=== PATIENT | female | born 1990 | race American Indian/Alaskan Native ===

== ENCOUNTER 2018-04-13 17:45 | Emergency (ER) | payer SELFPAY ==
[2018-04-13 18:04] VITALS: BP 117/78
[2018-04-13 18:53] LABS: HCG Qualitative,Urine Negative (Negative)
[2018-04-13 20:22] LABS: Bacteria,Urine 1+ /HPF (Negative); Bilirubin,Urine NEG (Negative); Blood,Urine SM (Negative); Color,Urine Colorless (Yellow); Protein,Urine <15 mg/dL mg/dL (Negative); Urobilinogen,Urine < 2.0 mg/dL (<2.0)
--- NOTE | 2018-04-13 20:46 | Emergency Department Report ---
ED Female HPI - General Chief complaint: Urogenital-Male Stated complaint: VAGINAL PAIN Time Seen by Provider: 04/13/18 20:04 Source: patient Mode of arrival: Ambulatory Limitations: No Limitations - History of Present Illness Initial comments: 27-year-old -[place] Citizen female presents to the emergency room for external vaginal irritation with vaginal discharge and painful urination 3 days. Patient reports that she does have some odor with the vaginal discharge. She admits to unprotected intercourse with one partner that she's had for the last 2 years. She is currently on Depakote last menstrual period was 03/29/2018. She is 3 para 0 no past medical history currently takes no medications and has no known drug allergies. MD Complaint: vaginal discharge -: days(s) (3) Location: labia Severity scale (0 -10): 5 Quality: burning Consistency: intermittent Improves with: none Worsens with: urination Are you Now?: No Last Menstrual Period: 03/29/18 EDC: 01/03/19 Associated Symptoms: vaginal discharge - Related Data Sexually active: Yes : 3 A: 3 Home Medications Medication Instructions Recorded Confirmed Last Taken medroxyPROGESTERone ACETATE 150 mg IM Q3M 09/11/14 09/11/14 08/18/14 [Depo-Provera (Contraception)] Previous Rx's Medication Instructions Recorded Last Taken Type Ciprofloxacin HCl [Cipro] 250 mg PO BID #14 tablet 09/11/14 Unknown Rx Allergies Allergy/AdvReac Type Severity Reaction Status Date / Time No Known Allergies Allergy Unverified 09/11/14 12:56 ED Review of Systems ROS: Stated complaint: VAGINAL PAIN Other details as noted in HPI Comment: All other systems reviewed and negative Genitourinary: discharge, other (labia irritation) ED Past Medical Hx - Past Medical History Hx Asthma: Yes (ATHLETIC ASTHMA) - Surgical History Additional Surgical History: x 1 - Social History Smoking Status: Never Smoker Substance Use Type: None - Medications Home Medications: Home Medications Medication Instructions Recorded Confirmed Last Taken Type Ciprofloxacin HCl [Cipro] 250 mg PO BID #14 tablet 09/11/14 Unknown Rx medroxyPROGESTERone ACETATE 150 mg IM Q3M 09/11/14 09/11/14 08/18/14 History [Depo-Provera (Contraception)] ED Physical Exam - General Limitations: No Limitations General appearance: alert, in no apparent distress - Eye Eye exam: Present: EOMI - ENT ENT exam: Present: mucous membranes moist - Cardiovascular Cardiovascular Exam: Present: regular rate, normal rhythm. Absent: systolic murmur, diastolic murmur, rubs, gallop - GI/Abdominal GI/Abdominal exam: Present: soft, normal bowel sounds - External exam: Present: swelling (labia majora) Speculum exam: Present: vaginal discharge - Extremities Exam Extremities exam: Present: full ROM - Back Exam Back exam: Present: full ROM - Neurological Exam Neurological exam: Present: alert, oriented X3 - Psychiatric Psychiatric exam: Present: normal affect, normal mood - Skin Skin exam: Present: warm, dry, intact, normal color. Absent: rash ED Course Vital Signs 04/13/18 18:00 Temperature 99 F Pulse Rate 100 H Respiratory 18 Rate Blood Pressure 117/78 O2 Sat by Pulse 100 Oximetry ED Medical Decision Making - Medical Decision Making Patient has been evaluated by this provider fast track. Wet prep GC chlamydia has been sent to the lab Urinalysis shows patient has moderate amount of leukoesterase with a trace of blood Discussed the patient most likely she's been exposed to gonorrhea. Discussed the patient was treated for gonorrhea and chlamydia. Discussed patient she needs to refrain from having intercourse for the next 2 weeks and then she needs to inform her partner that she had tested positive that he needs to be tested and treated. Also discussed the patient she needs to follow up with the health Department to have further testing for HIV and syphilis hepatitis and herpes. Patient verbalized understanding. Critical care attestation.: If time is entered above; I have spent that time in minutes in the direct care of this critically ill patient, excluding procedure time. ED Disposition Clinical Impression: STD (female) Disposition: DC-[facility] HOSPICE ([facility]) Is pt being admited?: No Does the pt Need Aspirin: No Condition: Stable Instructions: Safe Sex (ED), Cervicitis (ED), Sexually Transmitted Diseases (ED ), Gonococcal Urethritis (ED) Additional Instructions: Please refrain from having intercourse and to your partner has been tested and treated. Please use condoms when having intercourse. Please follow-up with the health Department to have further testing for HIV, syphilis, herpes, hepatitis. Referrals: PRIMARY CARE, [Primary Care Provider] - 3-5 Days [facility] [Outside] - 3-5 Days [facility] [Outside] - 3-[address] [facility] [Outside] - 3-5 Days [facility] [Outside] - 3-5 Days
[2018-04-13] MEDS ORDERED: ROCEPHIN IM ONE (21:25)
[2018-04-13] MEDS ORDERED: ZITHROMAX PO ONE (21:25)
[2018-04-13] MEDS ORDERED: XYLOCAINE 1% MPF 5 mL INFILTRATI ONE (21:25)
== END 2018-04-13 21:30 | disposition hospice, inpatient (51) ==
LOC: ED 17:45
DX: A64 Unspecified sexually transmitted disease (principal); J45.909 Unspecified asthma, uncomplicated
CPT/HCPCS: 81001; 81025; 87210; 87591; 96372; 99285; J0696

== ENCOUNTER 2018-04-17 14:37 | Emergency (ER) | payer SELFPAY ==
[2018-04-17 14:59] VITALS: BP 126/96
--- NOTE | 2018-04-17 15:32 | Emergency Department Report ---
ED Female HPI - General Chief complaint: Urogenital-Female Stated complaint: STD Time Seen by Provider: 04/17/18 15:19 Source: patient Mode of arrival: Ambulatory Limitations: No Limitations - History of Present Illness Initial comments: Eden is a healthy 27-year-old female who was treated for STD on Saturday. She vomited up the oral medications as soon as she left ER. She received her medical records and realized that shewas positive for chlamydia. She desires to be retreated for chlamydia. She denies any current symptoms at this time. - Related Data Home Medications Medication Instructions Recorded Confirmed Last Taken medroxyPROGESTERone ACETATE 150 mg IM Q3M 09/11/14 09/11/14 08/18/14 [Depo-Provera (Contraception)] Previous Rx's Medication Instructions Recorded Last Taken Type Ciprofloxacin HCl [Cipro] 250 mg PO BID #14 tablet 09/11/14 Unknown Rx Azithromycin [Zithromax TAB] 2 tab PO ONCE #2 tablet 04/17/18 Unknown Rx Allergies Allergy/AdvReac Type Severity Reaction Status Date / Time No Known Allergies Allergy Unverified 09/11/14 12:56 ED Review of Systems ROS: Stated complaint: STD Other details as noted in HPI Constitutional: denies: fever, malaise Respiratory: cough Gastrointestinal: denies: abdominal pain, nausea, vomiting ED Past Medical Hx - Past Medical History Hx Asthma: Yes (ATHLETIC ASTHMA) - Surgical History Past Surgical History?: Yes Additional Surgical History: x 1 - Social History Smoking Status: Current Every Day Smoker Substance Use Type: Marijuana - Medications Home Medications: Home Medications Medication Instructions Recorded Confirmed Last Taken Type Ciprofloxacin HCl [Cipro] 250 mg PO BID #14 tablet 09/11/14 Unknown Rx medroxyPROGESTERone ACETATE 150 mg IM Q3M 09/11/14 09/11/14 08/18/14 History [Depo-Provera (Contraception)] Azithromycin [Zithromax TAB] 2 tab PO ONCE #2 tablet 04/17/18 Unknown Rx ED Physical Exam - General Limitations: No Limitations, Language Barrier General appearance: alert, in no apparent distress - Head Head exam: Present: atraumatic, normocephalic - Respiratory Respiratory exam: Absent: respiratory distress - Neurological Exam Neurological exam: Present: alert, oriented X3 - Psychiatric Psychiatric exam: Present: normal affect, normal mood ED Course Vital Signs 04/17/18 14:53 Temperature 98.6 F Pulse Rate 101 H Blood Pressure 126/96 O2 Sat by Pulse 97 Oximetry ED Medical Decision Making - Medical Decision Making Eden is a very pleasant 27-year-old female who requests treatment for chlamydia. I provided a prescription for azithromycin and good Rx prescription card. Critical care attestation.: If time is entered above; I have spent that time in minutes in the direct care of this critically ill patient, excluding procedure time. ED Disposition Clinical Impression: STD (female), Chlamydia infection Disposition: DC-01 TO HOME OR SELFCARE Is pt being admited?: No Does the pt Need Aspirin: No Condition: Stable Instructions: Chlamydia Infection (ED) Prescriptions: Azithromycin [Zithromax TAB] 2 tab PO ONCE #2 tablet Referrals: PRIMARY CARE, [Primary Care Provider] - 3-5 Days [facility] [Outside] - 3-5 Days Forms: STI Treatment and Prevention
== END 2018-04-17 15:45 | disposition home or self-care (01) ==
LOC: ED 14:37
DX: Z20.2 Contact with and (suspected) exposure to infections with a predominantly sexual mode of transmission (principal); A74.9 Chlamydial infection, unspecified
CPT/HCPCS: 99282